=== PATIENT | male | born 1965 | race Caucasian/White ===

== ENCOUNTER → 2017-08-17 | Outpatient (CLI) | payer OTHER ==
[~2017-08-17] MED LIST: IBUP-1277 PO; LANS30CA63 PO
[2017-08-17 11:31] LABS: BLOOD UREA NITROGEN 21 mg/dl (7-18); BUN/CREATININE RATIO 17.8 (10-20); CALCIUM 9.6 mg/dl (8.5-10.1); CARBON DIOXIDE 29 mmol/L (21-32); CHLORIDE 103 mmol/L (98-107); GLUCOSE 97 mg/dl (70-99); POTASSIUM 3.2 mmol/L (3.5-5.1); SODIUM 139 mmol/L (136-145)
== END | disposition home or self-care (01) ==
LOC: C.LAB 09:05
PROVIDERS: ATTEND Family Medicine
DX: Z11.4 Encounter for screening for human immunodeficiency virus [HIV] (principal); I10 Essential (primary) hypertension

== ENCOUNTER → 2018-02-26 | Outpatient (CLI) | payer OTHER ==
--- NOTE | 2018-02-26 11:46 | DIAGNOSTIC IMAGING REPORT ---
TESTICULAR ULTRASOUND CLINICAL HISTORY: Right groin pain COMPARISON STUDY: No previous studies for comparison. FINDINGS: The right testis measures 51 x 36 x 26 mm. The left testis measures 56 x 35 x 25 mm. There is no evidence of intratesticular mass. There is no evidence of testicular torsion. No epididymal lesions are visualized. There is a trace right-sided hydrocele. There is a 2 mm right-sided scrotolith. IMPRESSION: 1. No evidence of testicular torsion 2. No evidence of intratesticular mass 3. 2 mm right-sided scrotolith. Electronically signed by: Artur Barrios M.D. 02/26/2018 11:44 AM Dictated Date/Time: 02/26/2018 11:41 AM
== END | disposition home or self-care (01) ==
LOC: C.ULTR 11:00
PROVIDERS: ATTEND Family Medicine
DX: R10.31 Right lower quadrant pain (principal); N45.1 Epididymitis

== ENCOUNTER 2019-06-11 08:56 | Inpatient (IN) ==
--- NOTE | 2019-06-03 12:52 | PAT Medication Instructions ---
Medication Instructions Date of Service June 03, 2019 Home Medications lansoprazole [Prevacid] 30 mg PO QAM losartan-hydrochlorothiazide 1 tab PO QAM dicyclomine 20 mg tablet 20 mg PO NEEDED DO NOT take the morning of surgery losartan-hydrochlorothiazide 1 tab PO QAM dicyclomine 20 mg tablet 20 mg PO NEEDED Take morning of surgery With a small sip of water, OTHERWISE NOTHING TO EAT OR DRINK AFTER MIDNIGHT: lansoprazole [Prevacid] 30 mg PO QAM Take evening before surgery dicyclomine 20 mg tablet 20 mg PO NEEDED (if needed) Other Notes If you have any questions please call us at [phone] or [phone] or [phone] or [phone]
--- NOTE | 2019-06-03 14:16 | Anesthesiology Consultation ---
Date of Service June 03, 2019 Assessment & Plan (1) Encounter for pre-operative examination: - No previous anesthesia records. Chart Review Chart Review: Acceptable Risk for Surgery and Patient seen in Pre Admission Testing Consults Requested none Teaching & Discussion Pre-Anesthesia Teaching/Discussion Notes: Instructed NPO after midnight before surgery, except medications with 15 cc of water. Medication instructions provided according to the PAT guidelines. History Surgery Operation Date: 06/11/19 10:05 Proposed Procedures p L2-L3 Decompression and Fusion, Spinal Cord Monitoring - Charles Olguin DO Height/Weight Height: 5 ft 10 in Weight: 98.5 kg Allergies Allergy/AdvReac Type Severity Reaction Status Date / Time No Known Allergies Allergy Unknown Verified 05/30/19 11:46 Medications Home Medications Medication Instructions Recorded Confirmed Last Taken lansoprazole [Prevacid] 30 mg PO QAM 11/12/18 05/30/19 11/28/18 07:00 0500 losartan-hydrochlorothiazide 1 tab PO QAM 11/12/18 05/30/19 11/29/18 0500 dicyclomine 20 mg tablet 20 mg PO UD #30 tab 05/05/19 05/30/19 Unknown Past Medical History Medical History Acid reflux disease (Acute) Cervical disc disease (Acute) Compression deformity of vertebra (Acute) Degenerative joint disease (DJD) of lumbar spine (Acute) Eosinophilic esophagitis (Acute) Erectile dysfunction (Acute) Lumbar disc disease (Acute) GERD (gastroesophageal reflux disease) Hypertension Lumbar radiculitis Obesity Exercise / Class Metabolic Activity II 4-5 Yardwork/Stairs/Walk up hill (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 Able to climb FOS. Denies CP or SOB.) Past Surgical History Surgical History History of colonoscopy History of esophagogastroduodenoscopy (EGD) History of tooth extraction Hx of vasectomy Past Anesthesia History No Hx of Anesthesia Complications and No Family Hx of Anesthesia Complications History of PONV No Hx of PONV and No Hx of Motion Sickness Social History Smoking Status: Never smoker Do You Dip or Chew Tobacco: No Hx Alcohol Use: Yes Alcohol type: beer alcohol intake frequency: holidays/special occasions only Hx Substance Use: No substance use type: does not use Review of Systems Patient denies chest pain, shortness of breath, dyspnea on exertion, cough, wheezing, palpitations. +Joint Pain (Back Pain) +Acid Reflux (controlled with medication) Physical Exam Vital Signs BP: 124/86 P: 65 R: 14 T: 98.2 SPO2: 96% on RA ENMT Thyromental Distance: > or= 3.5 Finger Breadths (4) Mallampati Class: II Neck normal visual inspection and trachea midline; neck extension not limited Respiratory normal respiratory effort Auscultation: lungs clear to auscultation bilaterally Cardiovascular Rate/Rhythm: regular rate and regular rhythm Heart Sounds: no murmur Neurologic moves all extremities Psychiatric Orientation: alert and oriented x 3 Testing Laboratory Results 06/03/19 14:25 06/03/19 14:25 PT 10.3 Seconds (9.0-12.0) 06/03/19 14:25 INR 1.0 (0.9-1.1) 06/03/19 14:25 APTT 27.4 Seconds (21.0-31.0) 06/03/19 14:25 Urine Color Yellow 06/03/19 14:25 Urine Appearance Clear (Clear) 06/03/19 14:25 Urine pH 7.0 (4.5-7.5) 06/03/19 14:25 Ur Specific [place] 1.014 (1.000-1.030) 06/03/19 14:25 Urine Protein Negative (Negative) 06/03/19 14:25 Urine Glucose (UA) Negative (Negative) 06/03/19 14:25 Urine Ketones Negative (Negative) 06/03/19 14:25 Urine Nitrite Negative (Negative) 06/03/19 14:25 Ur Leukocyte Esterase Negative (Negative) 06/03/19 14:25 Blood Type B Negative 06/03/19 14:25 Antibody Screen NEGATIVE 06/03/19 14:25 Electrocardiogram Date: 04/10/19 Findings: + NSR @ (62) Chest X-Ray Date: 04/10/19 Findings: + NAD
[2019-06-03 15:06] LABS: Basophils # (auto) 0.02 K/uL (0-0.2); Basophils % (auto) 0.4 %; Eosinophils % (auto) 1.9 %; Hematocrit (blood only) 43.5 % (42-52); Hemoglobin 16.1 g/dL (14.0-18.0); Immature Granulocytes # (auto) 0.01 K/uL (0.00-0.02); Immature Granulocytes % (auto) 0.2 %; Lymphocytes # (auto) 2.02 K/uL (1.2-3.4); Lymphocytes % (auto) 37.6 %; Mean Platelet Volume 9.8 fL (7.4-10.4); Monocytes # (auto) 0.49 K/uL (0.11-0.59); Monocytes % (auto) 9.1 %; Neutrophils # (auto) 2.73 K/uL (1.4-6.5); Neutrophils % (auto) 50.8 %; Platelet Count 221 K/uL (130-400); RDW Coefficient of Variation 12.3 % (11.5-14.5); RDW Standard Deviation 38.8 fL (36.4-46.3); Red Blood Count 5.06 M/uL (4.7-6.1); White Blood Count 5.37 K/uL (4.8-10.8)
[2019-06-03 15:11] LABS: Appearance Urine Clear (Clear); Bilirubin Urine Negative (Negative); Blood Urine Negative (Negative); Color Urine Yellow; Glucose Urine UA Negative (Negative); Ketones Urine Negative (Negative); Leukocyte Esterase Urine Negative (Negative); Nitrite Urine Negative (Negative); Protein Urine Negative (Negative); Specific Gravity Urine 1.014 (1.000-1.030); Urobilinogen Urine Negative (Negative)
[2019-06-03 15:13] LABS: BUN Creatinine Ratio 17.4 (10-20); Calcium 9.8 mg/dl (8.5-10.1); Creatinine Clr Calc Pharmacy 89.8 ml/min; Est GFR (African American) 85.8; Est GFR (Non-African American) 74.1; Potassium 3.9 mmol/L (3.5-5.1)
[2019-06-03 15:17] LABS: Partial Thromboplastin Time 27.4 Seconds (21.0-31.0); Prothrombin Time 10.3 Seconds (9.0-12.0)
[~2019-06-11 08:56] MED LIST changes: +CEFAZOLIN 2000MG 2,000 MG/15 ML SYR IV SCH; -IBUP-1277 PO; -LANS30CA63 PO; +LR 15ML/HR IV SCH
[2019-06-11] MEDS ORDERED: METOCLOPRAMIDE HCL INJ 5 MG/ML 2 ML VIAL IV PRN ×2 (09:40→13:57)
[2019-06-11] MEDS ORDERED: MIDAZOLAM HCL 1 MG/ML 2ML VIAL ONE (09:40)
[2019-06-11] MEDS ORDERED: PROMETHAZINE HCL 12.5 MG in SODIUM CHLORIDE 0.9% 50 ML IV PRN ×2 (09:40→13:57)
[2019-06-11] MEDS ORDERED: HYDROmorphone INJ 2 MG/ML SYR/VIAL IV PRN (09:40)
[2019-06-11] MEDS ORDERED: ePHEDrine sulfate 50 MG/ML AMP IV PRN (09:40)
[2019-06-11] MEDS ORDERED: ATROPINE SULFATE 0.1 MG/ML 10ML SYR IV PRN (09:40)
[2019-06-11] MEDS ORDERED: fentaNYL citrate 100 MCG/2 ML VIAL ONE ×4 (09:40→11:57)
--- NOTE | 2019-06-11 10:04 | History & Physical Bridge Note ---
Date of Service June 11, 2019 History & Physical Bridge Note I have examined the patient, reviewed the History & Physical and in the interval since the performance of the History & Physical I have noted the following changes of clinical significance: no changes noted
--- NOTE | 2019-06-11 10:05 | History & Physical Report ---
Date of Service June 11, 2019 Assessment & Plan (1) Spinal stenosis, lumbar region with neurogenic claudication: L2-L3 decompression and fusion Present on Admission?: Yes History of Present Illness Chief Complaint: Back and bilateral leg pain Primary Care Provider: Deena Godwin MD This is a 54-year-old male who presents with chronic persistent back and bilateral leg pain. After failing extensive course of nonoperative care is here for surgical intervention. Allergies Allergy/AdvReac Type Severity Reaction Status Date / Time No Known Allergies Allergy Unknown Verified 06/11/19 09:23 Home Medications Home Medications Medication Instructions Recorded Confirmed Type lansoprazole [Prevacid] 30 mg PO QAM 11/12/18 06/11/19 History losartan-hydrochlorothiazide 1 tab PO QAM 11/12/18 06/11/19 History dicyclomine 20 mg tablet 20 mg PO UD #30 tab 05/05/19 06/11/19 History Past Med/Surg History Surgical History History of colonoscopy History of esophagogastroduodenoscopy (EGD) History of tooth extraction Hx of vasectomy Social History Preferred Language: Georgian Communication Ability: Effective 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
[2019-06-11] MEDS ORDERED: BACITRACIN INJ 50,000 UNIT VIAL ONE (10:25)
[2019-06-11] MEDS ORDERED: BUPIVACAINE/EPINEPHRINE 0.5% MPF 1:200,000 30 ML VIAL ONE (10:25)
[2019-06-11] MEDS ORDERED: HYDROmorphone INJ 2 MG/ML SYR/VIAL ONE ×2 (11:02→12:12)
[2019-06-11] MEDS ORDERED: FLOSEAL HEMOSTATIC MATRIX 10ML TOP ONE (11:44)
[2019-06-11] MEDS ORDERED: PROPOFOL IV EMULSION 10 MG/ML 20 ML VIAL IV ONE (12:15)
[2019-06-11] MEDS ORDERED: KETOROLAC 30 MG/ML VIAL ONE (12:15)
[2019-06-11] MEDS ORDERED: METOCLOPRAMIDE HCL INJ 5 MG/ML 2 ML VIAL ONE (12:15)
[2019-06-11] MEDS ORDERED: ONDANSETRON INJ 2 MG/ML 2 ML VIAL ONE (12:15)
[2019-06-11] MEDS ORDERED: raNITIdine HCl 25 MG/ML VIAL IV ONE (12:15)
[2019-06-11] MEDS ORDERED: DEXAMETHASONE SOD INJ 4 MG/ML VIAL ONE (12:15)
[2019-06-11] MEDS ORDERED: NEOSTIGMINE METHYLSULFATE 1 MG/ML 10ML VIAL ONE (12:15)
[2019-06-11] MEDS ORDERED: LARYING-O-JET KIT (LTA) ONE (12:15)
[2019-06-11] MEDS ORDERED: LIDOCAINE HCL 2% 2 ML VIAL/AMP(20MG/ML) INFIL ONE (12:15)
[2019-06-11] MEDS ORDERED: ROCURONIUM BROMIDE 10 MG/ML 5 ML VIAL ONE (12:15)
[2019-06-11] MEDS ORDERED: GLYCOPYRROLATE 0.2 MG/ML VIAL ONE (12:15)
--- NOTE | 2019-06-11 12:19 | Operative Report ---
Post Operative Report Pre & Post Diagnosis Operation Date: 06/11/19 10:35 Pre-Op Diagnosis: LUMBAR SPINAL STENOSIS W/NEUROGENIC CLAUDICATION Post-Op Diagnosis: LUMBAR SPINAL STENOSIS W/NEUROGENIC CLAUDICATION Procedure Operation Date: 06/11/19 10:35 Actual Procedures #1 lumbar decompression with bilateral medial facetectomies foraminotomies L1-L2 3. #2 posterior spinal fusion L2-3. #3 placement posterior instrumentation L2- 3. #4 interbody fusion L2-3. #5 placement of peek cage 12 x 26 mm at L2-3. #6 placement of local autograft in the posterior lateral gutters per #7 placement Feese collagen sponge, master graft in the posterior lateral gutters and ostial amp and interbody space. Surgeon Charles Olguin DO Adoption Manager Tiffany Loya Estimated Blood Loss 125 Findings See Below Patient is 5 foot 10 inches tall weighing 98.5 kg with a BMI of 31.2. The patient's body habitus increased technical difficulty adding 25% increase in operative time. Specimens None Indications This is a 54-year-old male who presents with a above-mentioned diagnosis after failing extensive course of nonoperative care like to undergo the above- mentioned procedure. Description of Procedure Patient was met with identified and informed consent obtained. Patient was then taken to the operative suite underwent intubation placed in a prone position the Bill table on well-padded eyes inspected to ensure no external pressure placed upon the peer at this point the lumbar spine was prepped and draped in the normal sterile fashion. Sharp dissection with the assistance of Bovie cautery was performed down to and exposing the lamina and transverse processes of L2 and L3 bilaterally. From a caudal to cephalad fashion complete laminectomy of L2 partial laminectomy fill one was performed including bilateral medial facetectomies and foraminotomies addressing severe stenosis. Pedicle sc rews were then placed in L2 and L3 bilaterally with assistance of fluoroscopy the purposes katie placed. By way of a transforaminal approach on the right complete discectomy was performed in plate graded to subcortical bleeding bone and a 12 x 26 mm peek cage filled with ostium bone graft tapped in position. Rods were then compressed locked in final position bilaterally. The transverse processes of L2 and L3 burred to subcortical bleeding bone. Infuse collagen sponge master graft local autograft placed in the posterior lateral gutters. 15 round MADELEINE drain was inserted. The incision was then closed with 1 Vicryl in the fascia 2-0 Vicryl subcutaneously and 4-0 Monocryl for final skin closure. Steri-Strip sterile dressings placed. Patient will continue to PACU stable condition. Please note Tiffany Loya was present on the entire procedure involved the patient positioning complex portions of the surgery and final skin closure. Lastly spinal cord monitoring was utilized and no changes noted. I attest to the content of the Intraoperative Record and any orders documented therein. Any exceptions are noted below.
--- NOTE | 2019-06-11 12:31 | Fluoroscopy Report ---
FL lumbar spine 2-3V CLINICAL HISTORY: L2-L3 DECOMPRESSION AND FUSION COMPARISON STUDY: 11/06/2018 FLUOROSCOPY TIME: 22 seconds. NUMBER OF FLUOROSCOPIC IMAGES: 2 FINDINGS: 2 intraoperative fluoroscopic spot films demonstrate postsurgical changes of an L2-3 discec ree and interbody fusion. There is posterior pedicle screw fixation. IMPRESSION: Postsurgical changes of an L2-3 discectomy, interbody fusion, and posterior pedicle scre w fixation Electronically signed by: Artur Barrios M.D. 06/11/2019 12:30 PM
[2019-06-11] MEDS: fentaNYL citrate 100 MCG/2 ML VIAL IV PRN ×2 (12:58→13:03)
--- NOTE | 2019-06-11 13:33 | Anesthesiology Progress Note ---
Date of Service June 11, 2019 Anesthesia Post Procedure Vital Signs Vital Signs: Temp Pulse Pulse Resp BP Pulse Ox 06/11/19 13:15 36.2 C L 63 15 121/80 97 06/11/19 13:05 80 15 125/95 99 06/11/19 12:55 74 16 129/87 99 06/11/19 12:45 79 16 135/91 100 06/11/19 12:37 36.3 C L 90 16 154/95 H 98 06/11/19 09:45 36.8 C 74 18 138/100 99 Pain Intensity Back: Pain Intensity: 4 Transfer of Care Handoff Completed per policy Notes Mental Status: alert / awake / arousable and participated in evaluation Patient Amnestic to Procedure: Yes Nausea / Vomiting: adequately controlled Pain: adequately controlled Airway Patency, RR, SpO2: stable & adequate BP & HR: stable & adequate Hydration State: stable & adequate Anesthetic Complications: no major complications apparent
[2019-06-11] MEDS ORDERED: ONDANSETRON INJ 2 MG/ML 2 ML VIAL IV PRN (13:57)
[2019-06-11] MEDS ORDERED: BISACODYL 10 MG SUPP PR PRN (13:57)
[2019-06-11] MEDS ORDERED: ALUMINUM/MAGNESIUM SUSP 30 ML UDC PO PRN (13:57)
[2019-06-11] MEDS ORDERED: FAMOTIDINE 20 MG TAB PO PRN (13:57)
[2019-06-11] MEDS ORDERED: ACETAMINOPHEN 500 MG TAB PO PRN (13:57)
[2019-06-11] MEDS ORDERED: ONDANSETRON 4 MG TAB PO PRN (13:57)
[2019-06-11] MEDS ORDERED: TRAMADOL HCL 50 MG TABLET PO PRN (13:57)
[2019-06-11] MEDS ORDERED: DO NOT ADMINISTER PNEUMOCOCCAL VACCINE PRN (13:57)
[2019-06-11] MEDS ORDERED: MAGNESIUM HYDROXIDE SUSP 30 ML UDC PO PRN (13:57)
[2019-06-11] MEDS ORDERED: HYDROmorphone INJ 0.5 MG/0.5 ML SYR IV PRN (13:57)
[2019-06-11] MEDS ORDERED: LORazepam 0.5 MG/1 ML VIAL IV PRN (13:57)
[2019-06-11] MEDS ORDERED: LORazepam 0.5 MG TAB PO PRN (13:57)
[2019-06-11] MEDS ORDERED: SOD PHOSPHATE/SOD BIPHOSPHATE ENEMA 132 ML BTL PR PRN (13:57)
[2019-06-11] MEDS ORDERED: DO NOT ADMINISTER FLU VACCINE PRN (13:57)
[2019-06-11] MEDS ORDERED: ACETAMINOPHEN 1,000 MG/100 ML VIAL IV PRN (13:57)
--- NOTE | 2019-06-11 14:16 | Anesthesiology Progress Note ---
Date of Service June 11, 2019 Anesthesia Post Procedure Vital Signs Vital Signs: Temp Pulse Pulse Resp BP Pulse Ox 06/11/19 13:50 36.5 C 55 L 16 127/83 98 06/11/19 13:25 36.2 C L 56 L 16 120/84 99 06/11/19 13:15 36.2 C L 63 15 121/80 97 06/11/19 13:05 80 15 125/95 99 06/11/19 12:55 74 16 129/87 99 06/11/19 12:45 79 16 135/91 100 06/11/19 12:37 36.3 C L 90 16 154/95 H 98 06/11/19 09:45 36.8 C 74 18 138/100 99 Pain Intensity Back: Pain Intensity: 4 Transfer of Care Handoff Completed per policy Notes Mental Status: alert / awake / arousable and participated in evaluation Patient Amnestic to Procedure: Yes Nausea / Vomiting: adequately controlled Pain: adequately controlled Airway Patency, RR, SpO2: stable & adequate BP & HR: stable & adequate Hydration State: stable & adequate Anesthetic Complications: no major complications apparent
[2019-06-11] MEDS: LACTATED RINGER'S 1,000 ML IV SCH ×2 (14:40→21:20)
[2019-06-11] MEDS: KETOROLAC 30 MG/ML VIAL IV SCH ×2 (14:45→20:31)
[2019-06-11] MEDS: OXYCODONE HCL IR 5 MG TAB (IMMEDIATE RELEASE) PO PRN ×2 (14:46→19:27)
[2019-06-11] MEDS: CEFAZOLIN 2000MG 2,000 MG/15 ML SYR IV SCH (19:27)
[2019-06-11] MEDS: DOCUSATE SODIUM/SENNA 50/8.6MG TAB PO SCH (20:31)
[2019-06-11] MEDS ORDERED: DICYCLOMINE HCL 20 MG TAB PO PRN (21:00)
[2019-06-12] MEDS: CEFAZOLIN 2000MG 2,000 MG/15 ML SYR IV SCH (02:45)
[2019-06-12] MEDS: KETOROLAC 30 MG/ML VIAL IV SCH ×2 (02:45→09:27)
[2019-06-12] MEDS: POLYETHYLENE (MIRALAX) 17 GM PACK PO SCH ×3 (05:57→18:03)
[2019-06-12] MEDS: OXYCODONE HCL IR 5 MG TAB (IMMEDIATE RELEASE) PO PRN ×3 (06:01→22:06)
[2019-06-12 06:08] LABS: Basophils # (auto) 0.01 K/uL (0-0.2); Hematocrit (blood only) 39.3 % (42-52); Hemoglobin 14.5 g/dL (14.0-18.0); Immature Granulocytes # (auto) 0.07 K/uL (0.00-0.02); Immature Granulocytes % (auto) 0.3 %; Lymphocytes # (auto) 1.04 K/uL (1.2-3.4); Lymphocytes % (auto) 5.2 %; Mean Corpuscular Hgb Conc 36.9 g/dL (32-36); Mean Corpuscular Volume 87.5 fL (80-100); Mean Platelet Volume 9.6 fL (7.4-10.4); Monocytes # (auto) 0.84 K/uL (0.11-0.59); Monocytes % (auto) 4.2 %; Neutrophils # (auto) 18.07 K/uL (1.4-6.5); Neutrophils % (auto) 90.3 %; Platelet Count 258 K/uL (130-400); RDW Coefficient of Variation 12.1 % (11.5-14.5); RDW Standard Deviation 38.5 fL (36.4-46.3); Red Blood Count 4.49 M/uL (4.7-6.1); White Blood Count 20.03 K/uL (4.8-10.8)
[2019-06-12 06:47] LABS: BUN Creatinine Ratio 12.9 (10-20); Calcium 9.3 mg/dl (8.5-10.1); Est GFR (African American) 71.4; Est GFR (Non-African American) 61.6
--- NOTE | 2019-06-12 08:00 | Anesthesiology Progress Note ---
Date of Service June 12, 2019 Anesthesia Post Procedure Vital Signs Vital Signs: Temp Pulse Pulse Pulse Pulse Resp BP 06/12/19 07:14 36.5 C 61 20 114/71 06/12/19 03:43 36.7 C 73 16 106/69 06/11/19 23:49 36.7 C 65 16 06/11/19 18:49 36.5 C 62 17 06/11/19 16:58 36.3 C L 64 18 129/82 06/11/19 15:57 36.3 C L 84 18 129/87 06/11/19 14:51 36.3 C L 61 18 06/11/19 14:20 35.9 C L 75 18 06/11/19 13:50 36.5 C 55 L 16 06/11/19 13:25 36.2 C L 56 L 16 06/11/19 13:15 36.2 C L 63 15 06/11/19 13:05 80 15 06/11/19 12:55 74 16 06/11/19 12:45 79 16 06/11/19 12:37 36.3 C L 90 16 06/11/19 09:45 36.8 C 74 18 BP Pulse Ox 06/12/19 07:14 96 06/12/19 03:43 96 06/11/19 23:49 121/78 91 06/11/19 18:49 119/75 96 06/11/19 16:58 93 06/11/19 15:57 100 06/11/19 14:51 122/82 98 06/11/19 14:20 133/88 94 06/11/19 13:50 127/83 98 06/11/19 13:25 120/84 99 06/11/19 13:15 121/80 97 06/11/19 13:05 125/95 99 06/11/19 12:55 129/87 99 06/11/19 12:45 135/91 100 06/11/19 12:37 154/95 H 98 06/11/19 09:45 138/100 99 Pain Intensity Back: Pain Intensity: 2 Notes Mental Status: alert / awake / arousable and participated in evaluation Patient Amnestic to Procedure: Yes Nausea / Vomiting: adequately controlled Pain: adequately controlled Airway Patency, RR, SpO2: stable & adequate BP & HR: stable & adequate Hydration State: stable & adequate Anesthetic Complications: no major complications apparent and Pt Satisfied with anesthetic care
--- NOTE | 2019-06-12 08:25 | Orthopedic Progress Note ---
Date of Service June 12, 2019 Assessment & Plan (1) Spinal stenosis, lumbar region with neurogenic claudication: This time we will continue physical therapy monitor his MADELEINE output anticipate discharge home in the next few days. Present on Admission?: Yes Subjective Patient's back pain is controlled leg pain improved Physical Exam Physical Exam: Patient is in the chair at the bedside. Is good strength testing appears comfortable. Results & Data Vital Signs (Past 12 Hours) Vital Signs Temp Pulse Pulse Resp BP BP Pulse Ox 06/12/19 07:14 36.5 C 61 20 114/71 96 06/12/19 03:43 36.7 C 73 16 106/69 96 06/11/19 23:49 36.7 C 65 16 121/78 91
[2019-06-12] MEDS: PANTOprazole 40 MG TAB PO SCH (09:27)
[2019-06-12] MEDS: LOSARTAN/HCTZ 50/12.5MG TAB PO SCH (09:27)
[2019-06-12] MEDS: DOCUSATE SODIUM/SENNA 50/8.6MG TAB PO SCH (20:10)
[2019-06-13] MEDS: OXYCODONE HCL IR 5 MG TAB (IMMEDIATE RELEASE) PO PRN ×2 (05:42→10:42)
[2019-06-13] MEDS: PANTOprazole 40 MG TAB PO SCH (08:39)
[2019-06-13] MEDS: LOSARTAN/HCTZ 50/12.5MG TAB PO SCH (08:39)
--- NOTE | 2019-06-13 12:25 | Discharge Summary ---
Date of Service June 13, 2019 Admission HPI Per Admitting Provider This is a 54-year-old male who presents with chronic persistent back and bilateral leg pain. After failing extensive course of nonoperative care is here for surgical intervention. Principal Diagnosis Lumbar spinal stenosis with neurogenic claudication Discharge Data Allergies Allergy/AdvReac Type Severity Reaction Status Date / Time No Known Allergies Allergy Unknown Verified 06/11/19 09:23 Consultations 06/11/19 13:57 Consult Case Management - Discharge Planning Routine Procedures Performed Operation Date: 06/11/19 10:35 Actual Procedures p L2-L3 Decompression and Fusion, Use of Osteamp and Infuse with Spinal Cord Monitoring(Not Applicable) - Charles Olguin DO Ordered Studies 06/11/19 [place] fluoroscopy <1hr Routine [place] lumbar spine 2-3V Routine Hospital Course (1) Spinal stenosis, lumbar region with neurogenic claudication: Patient underwent lumbar decompression fusion tolerated as well as taken to orthopedic for postoperative. Postop day 1 he was up and ambulating leg pain improved to progress the postop day #2. Subsequently discharged home. Discharge orders and instructions from the chart for further review. Total Time Total Time Spent Total Time Spent (In Minutes): 20 minutes Discharge Plan Discharge Items Patient Disposition: Home - Self-Care Reason For Visit: LUMBAR SPINAL STENOSIS W/NEUROGENIC CLAUDICATION Discharge Diagnosis: Lumbar spinal stenosis with neurogenic claudication Discharge Goals: Improve function Activity: Per 'Additional Instructions' section Non-emergency contact: Primary Care Provider Call non-emergency contact if: you have any medication questions Follow-up/Referrals: Deena Godwin MD [Primary Care Provider] - Diet: Regular Addtl Provider Instructions: ACTIVITY RECOMMENDATIONS: SELF CARE INSTRUCTIONS AFTER THORACIC/LUMBAR FUSIONS 1. You may walk to your tolerance. It is good exercise for your legs and back. Expect some back and intermittent leg aches and pains. 2. You may perform "counter-top" level activities (make a sandwich, zaid with a project, etc.). 3. No bending or lifting of more than 10 pounds or back twisting of any nature (roll like a log when turning in bed). 4. You may ride in a car for 20-30 minutes at a time. No driving until after your first visit with your doctor. 5. Frequent changes of position and restricting sitting to 30 minutes at a time will help limit the amount of back spasms and stiffness you may experience. 6. You may discontinue the use of ambulatory aids (cane, crutches, etc.) once your strength and confidence allow. 7. You may field artillery targeting technician the shower and let water strike your incision when you arrive home at least once daily. Do not take a tub bath, sit in a hot tub or go into a swimming pool until after your first recheck in the office. SPECIAL CARE INSTRUCTIONS: VERY IMPORTANT TO READ AND REVIEW A. Your surgical incision has been closed with a cosmetic suture under the skin that will dissolve in about 6 weeks. In 14 days, you can use a pair of clean scissors and cut the suture that is left outside of the skin at the ends of your incision. 1. The small skin tapes can be removed 7 days after surgery if they have not fallen off by that point. 2. You may keep the wound open to air as much as possible to promote healing after post-op day number 5 unless told otherwise by your doctor. 3. If you think the wound looks like it is becoming infected (redness or worsening drainage) and/or you are experiencing fever, chill or worsening back pain and muscle spasms, contact the office so that we may evaluate you as soon as possible. B. Complications are uncommon, but please contact us if you have any signs or symptoms of: 1. wound infection (fever higher than 102.5 degrees F, redness, separation of wound, drainage, or increasing pain from the incision) 2. blood clots in legs (pain, swelling, redness and warmth in legs) 3. urinary tract infection (fever higher than 102.5 degrees F, burning upon urination or increased frequency of urination) 4. nerve problems (inability to walk on your toes or heels, numbness, loss of bowel or bladder control) 5. any other symptoms that concern you C. Please call the office at if you have any concerns or questions about your operation or recovery. D. No smoking! Smoking drastically decreases the chance of a solid fusion. E. Do not take any anti-inflammatory medications (Indocin, Advil, Motrin, Aspirin, Naprosyn, etc.) as these may inhibit the chance of a solid fusion. Tylenol is okay to take for pain. MANAGING PAIN AFTER SPINAL SURGERY 1. Narcotic medication is intended for short-term use and will be provided for surgical pain. Surgical pain usually lasts for a period of 4-6 weeks. Narcotic medication includes Percocet, Vicodin, Darvocet, Tylenol #3 or Lortab. 2. Longer-term pain is more appropriately treated with non-narcotic medication such as Tylenol ES. 3. Muscle spasm is not appropriately treated with narcotics. Muscle relaxers such as Soma, Flexeril or Skelaxin can be used along with Tylenol ES. 4. Remember that we all live with some "aches and pains". This is not unusual or uncommon after an injury or as we get older. a. Back pain is expected and may include muscle spasms for 4 to 6 weeks after surgery. The pain should gradually improve. If the pain worsens for no apparent reason, please contact the office. b. Intermittent leg pain may also be experienced and should not be concerned about unless it worsens for no apparent reason. If so, please contact the office. 5. We will provide appropriate medication within the normal guidelines of their prescribed use. We will also be very cautious and aware of potential abuse and extended duration of patients' medication needs. a. Pain medications are for your comfort and to assist with sleep and rest so that the tissue can heal. They are not provided in order to return to normal activity and should not be used through the day. To do so or worsening pain at night can result from ongoing tissue damage and development of tolerance to the prescribed medicine. 6. Please allow 2-3 days to process refills. Prescriptions will not be mailed but must be picked up at the office. FOLLOW UP VISIT: Keep your scheduled follow-up appointment. Any questions, please call the office at . Prescriptions: New tramadol 50 mg Tablet 50 mg PO Q4H PRN (Reason: Pain, Moderate) Qty: 30 RF: 0 oxycodone 5 mg Tablet 5 mg PO Q4H PRN (Reason: Pain, Severe) Qty: 30 RF: 0 Continued dicyclomine 20 mg tablet 20 mg PO UD Qty: 30 RF: 0 losartan-hydrochlorothiazide 100-25 mg Tablet 1 tab PO QAM RF: 0 lansoprazole [Prevacid] 30 mg Capsule,Delayed Release(Dr/Ec) 30 mg PO QAM RF: 0 Stand-Alone Forms: [facility], Opioid Pain Management Discharge Orders: Discharge Order (Routine); Ordered 06/13/19 Ordered By: Charles Olguin Admission Data Admit Date/Time: 06/11/19 12:26 Attending Provider: Charles Olguin Admit Provider: Charles Olguin Primary Care Provider: Deena Godwin V. Service: Surgical Services Other Interventions: Discharge Summary Assessment (RN) Last Done: 06/13/19 10:50
== END 2019-06-13 12:38 | disposition home or self-care (01) | DRG 455 ==
LOC: ASU 08:56 → 3E 12:26

== ENCOUNTER 2020-12-13 06:04 | Inpatient (IN) ==
--- NOTE | 2020-12-08 09:05 | Anesthesiology Consultation ---
Date of Service December 08, 2020 Assessment & Plan (1) Encounter for pre-operative examination: COVID Status: As of 12/07 nurse assessment, patient denies travel to endemic area, known exposure/sick contacts, or symptoms of COVID19. Preoperative COVID19 testing completed on 11/26 at [facility] [place], [place], results pending. Statement of Medical Necessity: "Surgery is medically necessary due to progressive right foot drop with severe radicular pain, lumbar disc herniation w ith radiculopathy and spondylolisthesis L5-S1 level. Patient has severe pain, weakness on the right side. Surgical intervention is necessary at this time." Currently, inpatient elective surgeries are reduced to only urgent/emergent/medically necessary cases due to high volume of COVID-19 patients. This statement will need to be reviewed by [facility] prior to final approval. Chart Review Chart Review: Acceptable Risk for Surgery and Patient NOT seen in Pre Admission Testing History Surgery Operation Date: 12/13/20 13:50 Proposed Procedures p Posterior Fusion Instrumentation Spinal Cord Monitoring - Charles Olguin DO Height/Weight Height: 5 ft 10 in Weight: 97.976 kg Allergies Allergy/AdvReac Type Severity Reaction Status Date / Time No Known Allergies Allergy Unknown Verified 12/07/20 09:41 Medications Home Medications Medication Instructions Recorded Confirmed Last Taken hydrochlorothiazide 25 mg tablet 25 mg PO DAILY #90 tab 03/16/20 12/07/20 11/01/20 lansoprazole 30 mg capsule,delayed 30 mg PO QAM #90 cap 03/16/20 12/07/20 11/01/20 release dicyclomine 20 mg tablet 20 mg PO BID PRN #30 tab 08/16/20 12/07/20 Unknown tramadol 50 mg tablet 50 mg PO DAILY PRN #30 tab 10/29/20 12/07/20 Unknown losartan 100 mg PO QAM 12/07/20 12/07/20 Unknown Past Medical History Medical History Acid reflux disease 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 Hx of gastric ulcer ~1996 Hypertension Lumbar disc disease Lumbar radiculitis Spinal stenosis, lumbar region with neurogenic claudication Past Family History Family History Father Prostate cancer Hypertension Mother Ovarian cancer Hypertension Grandfather Prostate cancer Other No family history of adverse response to anesthesia Denies family history of Myocardial infarction Breast cancer Colorectal cancer Past Surgical History Surgical History History of colonoscopy History of esophagogastroduodenoscopy (EGD) History of tooth extraction Hx of decompressive lumbar laminectomy Hx of vasectomy S/P epidural steroid injection Social History Smoking Status: Never smoker Do You Dip or Chew Tobacco: No Hx Alcohol Use: Yes Alcohol type: beer alcohol intake frequency: other Hx Substance Use: No substance use type: does not use Testing Laboratory Results 12/03/20 WBC: 8.13 H/H: 15.7/42.9 PLATELETS: 241 SODIUM: 137 POTASSIUM: 3.2 CHLORIDE: 103 CO2: 32 BUN: 22 CREATININE: 1.16 GLUCOSE: 128 PT: 10.3 PTT: 27.4 INR: 1.0 UA: WNL TYPE AND SCREEN: B negative, antibody negative Electrocardiogram Date: 12/03/20 Findings: + NSR @ (89bpm) Chest X-Ray Date: 12/03/20 Findings: + NAD
[~2020-12-13 06:04] MED LIST changes: -CEFAZOLIN 2000MG 2,000 MG/15 ML SYR IV SCH
[2020-12-13] MEDS ORDERED: ePHEDrine sulfate 50 MG/ML AMP IV PRN (06:58)
[2020-12-13] MEDS ORDERED: ONDANSETRON INJ 2 MG/ML 2 ML VIAL IV PRN ×2 (06:58→11:14)
[2020-12-13] MEDS ORDERED: PROMETHAZINE HCL 6.25 MG in SODIUM CHLORIDE 0.9% 50 ML IV PRN (06:58)
[2020-12-13] MEDS ORDERED: ATROPINE SULFATE 0.1 MG/ML 10ML SYR IV PRN (06:58)
[2020-12-13] MEDS ORDERED: HYDROmorphone INJ 2 MG/ML SYR/VIAL IV PRN (06:58)
[2020-12-13] MEDS ORDERED: MIDAZOLAM HCL 1 MG/ML 2ML VIAL ONE (07:03)
[2020-12-13] MEDS ORDERED: NEOSTIGMINE METHYLSULFATE 1 MG/ML 10ML VIAL ONE (07:03)
[2020-12-13] MEDS ORDERED: LIDOCAINE HCL 2% 2 ML VIAL/AMP(20MG/ML) INFIL ONE (07:03)
[2020-12-13] MEDS ORDERED: PROPOFOL IV EMULSION 10 MG/ML 20 ML VIAL IV ONE (07:03)
[2020-12-13] MEDS ORDERED: ONDANSETRON INJ 2 MG/ML 2 ML VIAL ONE (07:03)
[2020-12-13] MEDS ORDERED: fentaNYL citrate 100 MCG/2 ML VIAL ONE (07:03)
[2020-12-13] MEDS ORDERED: GLYCOPYRROLATE 0.2 MG/ML VIAL ONE (07:03)
[2020-12-13] MEDS ORDERED: DEXAMETHASONE SOD INJ 4 MG/ML VIAL ONE (07:03)
[2020-12-13] MEDS ORDERED: HYDROmorphone INJ 2 MG/ML SYR/VIAL ONE (07:03)
[2020-12-13] MEDS ORDERED: BUPIVACAINE/EPINEPHRINE 0.5% MPF 1:200,000 30 ML VIAL ONE (07:06)
[2020-12-13] MEDS ORDERED: BACITRACIN INJ 50,000 UNIT VIAL ONE (07:06)
--- NOTE | 2020-12-13 07:34 | History & Physical Bridge Note ---
Date of Service December 13, 2020 History & Physical Bridge Note I have examined the patient, reviewed the History & Physical and in the interval since the performance of the History & Physical I have noted the following changes of clinical significance: no changes noted
--- NOTE | 2020-12-13 07:35 | History & Physical Report ---
Date of Service December 13, 2020 Assessment & Plan (1) Right lumbar radiculopathy: Admission and Anticipated Discharge Date Admission Date: L5-S1 decompression fusion History of Present Illness Chief Complaint: Back and right leg pain with weakness Primary Care Provider: Deena Godwin MD This is a 55-year-old male presents worsening right leg pain and now foot drop. Allergies Allergy/AdvReac Type Severity Reaction Status Date / Time No Known Allergies Allergy Unknown Verified 12/13/20 06:12 Home Medications Medication Instructions Recorded Confirmed Type hydrochlorothiazide 25 mg tablet 25 mg PO DAILY #90 tab 03/16/20 12/13/20 Rx lansoprazole 30 mg capsule,delayed 30 mg PO QAM #90 cap 03/16/20 12/13/20 Rx release dicyclomine 20 mg tablet 20 mg PO BID PRN #30 tab 08/16/20 12/07/20 Rx tramadol 50 mg tablet 50 mg PO DAILY PRN #30 tab 10/29/20 12/13/20 Rx losartan 100 mg PO QAM 12/07/20 12/13/20 History Past Med/Surg History Medical History Acid reflux disease 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 Hx of gastric ulcer ~1996 Hypertension Lumbar disc disease Lumbar radiculitis Spinal stenosis, lumbar region with neurogenic claudication Surgical History (Updated 12/13/20 @ 06:16 by Layla Stratton RN) History of colonoscopy History of esophagogastroduodenoscopy (EGD) History of tooth extraction Hx of vasectomy S/P epidural steroid injection S/P lumbar fusion Family History Father Prostate cancer Hypertension Mother Ovarian cancer Hypertension Grandfather Prostate cancer Other No family history of adverse response to anesthesia Denies family history of Myocardial infarction Breast cancer Colorectal cancer Social History Smoking Status: Never smoker Second Hand Exposure: No; Do You Dip or Chew Tobacco: No; Tobacco Cessation Education Requested by Patient: No Hx Alcohol Use: Yes Alcohol type: beer Hx Substance Use: No Preferred Language: Estonian Communication Ability: Effective Rn Registry Required: No Beliefs That Will Affect Care: None marital status: Current Living Situation: Spouse and Family Other Information That Helps Us Care for You: No Feels Safe at Home: Yes Safety Concerns: Feels Safe At This Time Assistive Devices: Contacts and Glasses Physical Exam Physical Exam: Patient is alert and oriented Heart regular in rhythm Lungs clear to auscultation Foot drop to the right lower extremity Results & Data ([facility]) Vital Signs (Past 12 Hours) Vital Signs Temp Pulse Resp BP Pulse Ox 12/13/20 06:31 37.1 C 82 18 143/100 H 96
[2020-12-13] MEDS ORDERED: ceFAZolin 2,000 MG/15 ML IV PUSH IV ONE (07:41)
[2020-12-13] MEDS ORDERED: ceFAZolin 2000MG 2,000 MG/15 ML SYR IV ONE (07:47)
[2020-12-13] MEDS ORDERED: FLOSEAL HEMOSTATIC MATRIX 10ML TOP ONE (08:42)
[2020-12-13] MEDS ORDERED: KETOROLAC 30 MG/ML VIAL ONE (09:21)
[2020-12-13] MEDS ORDERED: PHENYLEPHRINE 100MCG/ML 5ML SYR ONE (09:25)
--- NOTE | 2020-12-13 09:36 | Operative Report ---
Post Operative Report Pre & Post Diagnosis Operation Date: 12/13/20 07:30 Pre-Op Diagnosis: Right Lumbar Radiculopathy L5-S1; Previous Fusion L2-L3 Post-Op Diagnosis: Right Lumbar Radiculopathy L5-S1; Previous Fusion L2-L3 I identified the patient and participated in the time-out.: Yes Procedure Operation Date: 12/13/20 07:30 Actual Procedures #1 lumbar decompression with bilateral medial facetectomies and foraminotomies L4-5 L5-S1. #2 posterior spinal fusion L5-S1. #3 placement posterior instrumentation L5-S1. #4 interbody fusion L5-S1. #5 placement peek cage 13 x 26 mm L5-S1. #6 placement locally harvested morselized autograft in the posterior lateral gutters. #7 placement infuse collagen sponge, master graft and posterior gutters and osteopenic body space. Surgeon Charles Olguin DO Computer Assistant Tiffany Loya Estimated Blood Loss 50 Findings Consistent with Post-Op Diagnosis Specimens None Indications This is a 55-year-old male who presents with marked decline in neurologic status and here for urgent decompression fusion Description of Procedure Patient was met with identified informed consent obtained. Patient was then taken to the operative suite underwent a patient placed in a prone position the Bill table on top Wyatt frame. All bony prominences well-padded I suspected to ensure no external pressure placed upon the. This point the lumbar spine was prepped and draped no sterile fashion. Sharp dissection with the assistance of Bovie cartilage from down to and exposing the lamina and transverse processes of L5 and the sacral ala bilaterally. Obvious bilateral pars defect was identified. A complete laminectomy of L5 partial anatomy of L4 was performed including bilateral medial facetectomies and foraminotomies addressing all spinal stenosis. Pedicle screws were then placed in L5 and S1 levels bilaterally with assistance of fluoroscopy and the properly sized katie placed. By way of a transfemoral approach on the right complete discectomy was performed endplates curetted to subcortical bleeding bone and a 13 x 26 mm peek cage fille d with osteobone graft tapped in position. The rods then locked in final position bilaterally. The transverse processes of L5 and sacral ala burred to subcortical bleeding bone. Infuse collagen sponge master graft local autograft was placed in the posterior lateral gutters. 15 round MADELEINE drain inserted. The incision was then closed with 1 Vicryl in the fascia 2-0 Vicryl subcutaneously and 4 Monocryl for final skin closure. Steri-Strip sterile dressings placed. Patient waken taken PACU stable condition. Please note spinal cord monitoring was utilized at the procedure no changes noted. Jeannette Loya was present at the entire surgery involved the patient positioning complex portions of the surgery and final skin closure. I attest to the content of the Intraoperative Record and any orders documented therein. Any exceptions are noted below.
[2020-12-13] MEDS ORDERED: ESMOLOL HCL INJ 10 MG/ML 10ML VIAL IV ONE (10:00)
--- NOTE | 2020-12-13 10:01 | Fluoroscopy Report ---
FL lumbar spine 2-3V CLINICAL HISTORY: L5-S1 DECOMPRESSION/FUSION/INTERBODY COMPARISON STUDY: 06/11/2019 FLUOROSCOPY TIME: 26 seconds. NUMBER OF FLUOROSCOPIC IMAGES: 2 FINDINGS: There is partial visualization of the prior L2-3 spinal decompression and fusion. There are are postsurgical changes of an L5-S1 discectomy interbody fusion with posterior pedicle screw fixati on. On the AP view, a radiopaque density projects over left side of the L5 vertebral body. This is no nspecific but could represent a sponge marker. IMPRESSION: Postsurgical changes of an L5-S1 discectomy and interbody fusion. ACT 112: Negative or not required by law. Electronically signed by: Artur Barrios M.D. 12/13/2020 9:59 AM
--- NOTE | 2020-12-13 10:11 | Anesthesiology Progress Note ---
Date of Service December 13, 2020 Anesthesia Post Procedure Vital Signs Vital Signs: Temp Pulse Resp BP Pulse Ox 12/13/20 06:31 37.1 C 82 18 143/100 H 96 Pain Intensity Right Leg: Pain Intensity: 4 Transfer of Care Handoff Completed per policy Notes Mental Status: alert / awake / arousable Patient Amnestic to Procedure: Yes Nausea / Vomiting: adequately controlled Pain: adequately controlled Airway Patency, RR, SpO2: stable & adequate BP & HR: stable & adequate Hydration State: stable & adequate Anesthetic Complications: no major complications apparent
[2020-12-13] MEDS: fentaNYL citrate 100 MCG/2 ML VIAL IV PRN ×2 (10:37→10:42)
[2020-12-13] MEDS ORDERED: ROCURONIUM BROMIDE 10 MG/ML 5 ML VIAL IV ONE (11:00)
[2020-12-13] MEDS ORDERED: HYDROmorphone INJ 0.5 MG/0.5 ML SYR IV PRN (11:14)
[2020-12-13] MEDS ORDERED: MAGNESIUM HYDROXIDE SUSP 30 ML UDC PO PRN (11:14)
[2020-12-13] MEDS ORDERED: traMADol HCL 50 MG TABLET PO PRN (11:14)
[2020-12-13] MEDS ORDERED: DICYCLOMINE HCL 20 MG TAB PO PRN (11:14)
[2020-12-13] MEDS ORDERED: hydrOXYzine HCl 25 MG TAB PO PRN (11:14)
[2020-12-13] MEDS ORDERED: SOD PHOSPHATE/SOD BIPHOSPHATE ENEMA 132 ML BTL PR PRN (11:14)
[2020-12-13] MEDS ORDERED: PROMETHAZINE HCL 12.5 MG in SODIUM CHLORIDE 0.9% 50 ML IV PRN (11:14)
[2020-12-13] MEDS ORDERED: NALOXONE HCL 0.4 MG/1 ML VIAL/CARP IV PRN (11:14)
[2020-12-13] MEDS ORDERED: ACETAMINOPHEN 1,000 MG/100 ML VIAL IV PRN (11:14)
[2020-12-13] MEDS ORDERED: DO NOT ADMINISTER PNEUMOCOCCAL VACCINE PRN (11:14)
[2020-12-13] MEDS ORDERED: LORazepam 0.5 MG TAB PO PRN (11:14)
[2020-12-13] MEDS ORDERED: LORazepam 0.5 MG/1 ML VIAL IV PRN (11:14)
[2020-12-13] MEDS ORDERED: DO NOT ADMINISTER FLU VACCINE PRN (11:14)
[2020-12-13] MEDS ORDERED: METOCLOPRAMIDE HCL INJ 5 MG/ML 2 ML VIAL IV PRN (11:14)
[2020-12-13] MEDS ORDERED: ONDANSETRON 4 MG OD TAB PO PRN (11:14)
[2020-12-13] MEDS ORDERED: diphenhydrAMINE Capsule 25 MG CAP PO PRN (11:14)
[2020-12-13] MEDS ORDERED: bisacodyL 10 MG SUPP PR PRN (11:14)
[2020-12-13] MEDS ORDERED: ALUMINUM/MAGNESIUM SUSP 30 ML UDC PO PRN (11:14)
[2020-12-13] MEDS ORDERED: FAMOTIDINE 20 MG TAB PO PRN (11:14)
[2020-12-13] MEDS: LACTATED RINGER'S 1,000 ML IV SCH ×2 (11:39→21:25)
[2020-12-13] MEDS: KETOROLAC 30 MG/ML VIAL IV SCH ×3 (12:57→23:42)
[2020-12-13] MEDS: oxyCODONE HCL IR 5 MG TAB (IMMEDIATE RELEASE) PO PRN ×2 (15:16→21:24)
[2020-12-13] MEDS: ceFAZolin 2000MG 2,000 MG/15 ML SYR IV SCH ×2 (15:18→23:42)
[2020-12-13] MEDS: DOCUSATE SODIUM/SENNA 50/8.6MG TAB PO SCH (21:25)
[2020-12-14] MEDS: KETOROLAC 30 MG/ML VIAL IV SCH (06:09)
[2020-12-14] MEDS: POLYETHYLENE (MIRALAX) 17 GM PACK PO SCH ×4 (06:09→23:18)
[2020-12-14] MEDS: oxyCODONE HCL IR 5 MG TAB (IMMEDIATE RELEASE) PO PRN ×4 (06:19→21:47)
[2020-12-14] MEDS ORDERED: Nursing to Pharmacy Communication SCH (06:30)
[2020-12-14 06:45] LABS: Hematocrit (blood only) 36.4 % (42-52); Hemoglobin 13.4 g/dL (14.0-18.0); Immature Granulocytes # (auto) 0.03 K/uL (0.00-0.02); Immature Granulocytes % (auto) 0.2 %; Lymphocytes # (auto) 1.39 K/uL (1.2-3.4); Lymphocytes % (auto) 8.4 %; Mean Corpuscular Hemoglobin 32.4 pg (25-34); Mean Corpuscular Hgb Conc 36.8 g/dL (32-36); Mean Corpuscular Volume 87.9 fL (80-100); Mean Platelet Volume 9.1 fL (7.4-10.4); Monocytes # (auto) 1.34 K/uL (0.11-0.59); Monocytes % (auto) 8.1 %; Neutrophils # (auto) 13.69 K/uL (1.4-6.5); Neutrophils % (auto) 83.3 %; Platelet Count 258 K/uL (130-400); RDW Coefficient of Variation 12.3 % (11.5-14.5); RDW Standard Deviation 39.8 fL (36.4-46.3); Red Blood Count 4.14 M/uL (4.7-6.1); White Blood Count 16.45 K/uL (4.8-10.8)
[2020-12-14 07:41] LABS: Calcium 9.6 mg/dl (8.5-10.1); Creatinine Clr Calc Pharmacy 93.3 ml/min; Est GFR (African American) 89.3; Est GFR (Non-African American) 77.1
--- NOTE | 2020-12-14 08:22 | Orthopedic Progress Note ---
Date of Service December 14, 2020 Assessment & Plan (1) Spinal stenosis, lumbar region with neurogenic claudication: Admission and Anticipated Discharge Date Admission Date: December 13, 2020 At this time we will continue physical therapy monitor his MADELEINE output hopefully discharge home in the next day or so. Subjective Back pain is controlled leg symptoms markedly improved. Physical Exam Physical Exam: On exam he has had significant improvement of his right dorsiflexion compared to his preoperative status. Results & Data ([facility]) Vital Signs (Past 12 Hours) Vital Signs Temp Pulse Resp BP BP Pulse Ox 12/14/20 08:03 36.6 C 70 18 115/72 97 12/14/20 03:52 36.9 C 91 H 18 127/74 95 12/13/20 23:24 36.8 C 94 H 18 121/71 94
[2020-12-14] MEDS: PANTOprazole 40 MG TAB PO SCH (08:42)
[2020-12-14] MEDS: hydroCHLOROthiazide 25 MG TAB PO SCH (08:42)
[2020-12-14] MEDS: LOSARTAN POTASSIUM 50 MG TAB PO SCH (08:42)
[2020-12-14] MEDS: HYDROmorphone INJ 1 MG/ML SYRINGE IV PRN ×4 (08:46→18:41)
[2020-12-14] MEDS: DEXAMETHASONE SOD PHOSPHATE 8 MG in SYRINGE 0 ML IV SCH (08:53)
[2020-12-14] MEDS: ACETAMINOPHEN 500 MG TAB PO PRN (18:13)
[2020-12-14] MEDS: DOCUSATE SODIUM/SENNA 50/8.6MG TAB PO SCH (21:48)
[2020-12-15] MEDS: POLYETHYLENE (MIRALAX) 17 GM PACK PO SCH ×2 (05:03→12:38)
[2020-12-15] MEDS: ACETAMINOPHEN 500 MG TAB PO PRN ×2 (05:31→13:32)
[2020-12-15] MEDS: oxyCODONE HCL IR 5 MG TAB (IMMEDIATE RELEASE) PO PRN ×3 (05:31→13:32)
[2020-12-15] MEDS: HYDROmorphone INJ 1 MG/ML SYRINGE IV PRN ×3 (07:42→14:05)
--- NOTE | 2020-12-15 09:27 | Discharge Summary ---
Date of Service December 15, 2020 Admission HPI Per Admitting Provider This is a 55-year-old male presents worsening right leg pain and now foot drop. Principal Diagnosis Lumbar disc herniation L5-S1 with spondylolisthesis L5-S1. Discharge Data Allergies Allergy/AdvReac Type Severity Reaction Status Date / Time No Known Allergies Allergy Unknown Verified 12/13/20 06:12 Consultations 12/13/20 11:14 Consult Case Management - Discharge Planning Routine Procedures Performed Operation Date: 12/13/20 07:30 Actual Procedures p L5-S1 Decompression and Fusion, with Bone Morphogenetic Protein, Application of OsteoAmp Allograft, Spinal Cord Monitoring(Bilateral) - Charles Olguin DO Ordered Studies 12/13/20 07:30 FL fluoroscopy <1hr Routine FL lumbar spine 2-3V Routine Hospital Course (1) Right lumbar radiculopathy: Patient with lumbar decompression fusion tolerated well second orthopedic for postop bleed. Postop day 1 is up and ambulating marked improvement of his neural deficits. He progressed to postop day #2. MADELEINE drain decreasing probably. Excellent strength testing. Pain well controlled. Subsequently discharged home. Discharge orders instructions can be found in chart for further review. Total Time Total Time Spent Total Time Spent (In Minutes): 20 minutes Discharge Plan Discharge Items Patient Disposition: Home - Self-Care Reason For Visit: Spondylolisthesis, Lumbosacral Region Discharge Diagnosis: lumbar stenosis Activity: As commented below Non-emergency contact: Primary Care Provider Call non-emergency contact if: you have any medication questions Follow-up/Referrals: Deena Godwin MD [Primary Care Provider] - Diet: Regular Addtl Attending Provider Instructions: ACTIVITY RECOMMENDATIONS: SELF CARE INSTRUCTIONS AFTER THORACIC/LUMBAR FUSIONS 1. You may walk to your tolerance. It is good exercise for your legs and back. Expect some back and intermittent leg aches and pains. 2. You may perform "counter-top" level activities (make a sandwich, zaid with a project, etc.). 3. No bending or lifting of more than 10 pounds or back twisting of any nature (roll like a log when turning in bed). 4. You may ride in a car for 20-30 minutes at a time. No driving until after your first visit with your doctor. 5. Frequent changes of position and restricting sitting to 30 minutes at a time will help limit the amount of back spasms and stiffness you may experience. 6. You may discontinue the use of ambulatory aids (cane, crutches, etc.) once your strength and confidence allow. 7. You may internal audit consultant the shower and let water strike your incision when you arrive home at least once daily. Do not take a tub bath, sit in a hot tub or go into a swimming pool until after your first recheck in the office. SPECIAL CARE INSTRUCTIONS: VERY IMPORTANT TO READ AND REVIEW A. Your surgical incision has been closed with a cosmetic suture under the skin that will dissolve in about 6 weeks. In 14 days, you can use a pair of clean scissors and cut the suture that is left outside of the skin at the ends of your incision. 1. The small skin tapes can be removed 7 days after surgery if they have not fallen off by that point. 2. You may keep the wound open to air as much as possible to promote healing after post-op day number 5 unless told otherwise by your doctor. 3. If you think the wound looks like it is becoming infected (redness or worsening drainage) and/or you are experiencing fever, chill or worsening back pain and muscle spasms, contact the office so that we may evaluate you as soon as possible. B. Complications are uncommon, but please contact us if you have any signs or symptoms of: 1. wound infection (fever higher than 102.5 degrees F, redness, separation of wound, drainage, or increasing pain from the incision) 2. blood clots in legs (pain, swelling, redness and warmth in legs) 3. urinary tract infection (fever higher than 102.5 degrees F, burning upon urination or increased frequency of urination) 4. nerve problems (inability to walk on your toes or heels, numbness, loss of bowel or bladder control) 5. any other symptoms that concern you C. Please call the office at if you have any concerns or questions about your operation or recovery. D. No smoking! Smoking drastically decreases the chance of a solid fusion. E. Do not take any anti-inflammatory medications (Indocin, Advil, Motrin, Aspirin, Naprosyn, etc.) as these may inhibit the chance of a solid fusion. Tylenol is okay to take for pain. MANAGING PAIN AFTER SPINAL SURGERY 1. Narcotic medication is intended for short-term use and will be provided for surgical pain. Surgical pain usually lasts for a period of 4-6 weeks. Narcotic medication includes Percocet, Vicodin, Darvocet, Tylenol #3 or Lortab. 2. Longer-term pain is more appropriately treated with non-narcotic medication such as Tylenol ES. 3. Muscle spasm is not appropriately treated with narcotics. Muscle relaxers such as Soma, Flexeril or Skelaxin can be used along with Tylenol ES. 4. Remember that we all live with some "aches and pains". This is not unusual or uncommon after an injury or as we get older. a. Back pain is expected and may include muscle spasms for 4 to 6 weeks after surgery. The pain should gradually improve. If the pain worsens for no apparent reason, please contact the office. b. Intermittent leg pain may also be experienced and should not be concerned about unless it worsens for no apparent reason. If so, please contact the office. 5. We will provide appropriate medication within the normal guidelines of their prescribed use. We will also be very cautious and aware of potential abuse and extended duration of patients' medication needs. a. Pain medications are for your comfort and to assist with sleep and rest so that the tissue can heal. They are not provided in order to return to normal activity and should not be used through the day. To do so or worsening pain at night can result from ongoing tissue damage and development of tolerance to the prescribed medicine. 6. Please allow 2-3 days to process refills. Prescriptions will not be mailed but must be picked up at the office. FOLLOW UP VISIT: Keep your scheduled follow-up appointment. Any questions, please call the office at . Pending Studies at Discharge: No Stand-Alone Forms: My Omnigy, Smoking Cessation Medications and DC Order Prescriptions: New tramadol 50 mg tablet 50 mg PO Q6H PRN (Reason: pain, moderate) Qty: 30 RF: 0 oxycodone 5 mg tablet 5 mg PO Q6H PRN (Reason: pain, severe) Qty: 30 RF: 0 Continued hydrochlorothiazide 25 mg tablet 25 mg PO DAILY Qty: 90 RF: 3 Hold Instructions: low BP , Low K lansoprazole [Prevacid] 30 mg capsule,delayed release(DR/EC) 30 mg PO QAM Qty: 90 RF: 3 dicyclomine 20 mg tablet 20 mg PO BID PRN (Reason: abdominal pain/cramping) Qty: 30 RF: 5 tramadol 50 mg tablet 50 mg PO DAILY PRN (Reason: pain) Qty: 30 RF: 0 losartan 100 mg tablet 100 mg PO QAM RF: 0 Discharge Orders: Discharge Order (Routine); Ordered 12/15/20 Ordered By: Charles Olguin Admission Data Admit Date/Time: 12/13/20 09:59 Attending Provider: Charles Olguin Admit Provider: Charles Olguin Primary Care Provider: Deena Godwin V.
[2020-12-15] MEDS: PANTOprazole 40 MG TAB PO SCH (09:32)
[2020-12-15] MEDS: LOSARTAN POTASSIUM 50 MG TAB PO SCH (09:32)
[2020-12-15] MEDS: hydroCHLOROthiazide 25 MG TAB PO SCH (09:32)
[2020-12-15] MEDS: DEXAMETHASONE SOD PHOSPHATE 8 MG in SYRINGE 0 ML IV SCH (09:32)
== END 2020-12-15 14:20 | disposition home or self-care (01) | DRG 455 ==
LOC: ASU 06:04 → 3N 09:59
DX: I10 Essential (primary) hypertension; M51.17 Intervertebral disc disorders with radiculopathy, lumbosacral region; M48.062 Spinal stenosis, lumbar region with neurogenic claudication; M43.17 Spondylolisthesis, lumbosacral region; M21.371 Foot drop, right foot; K21.9 Gastro-esophageal reflux disease without esophagitis; Z79.899 Other long term (current) drug therapy; Z98.1 Arthrodesis status